=== PATIENT | female | born 1985 | race Asian ===

== ENCOUNTER 2024-01-24 04:14 | Emergency (ER) | payer OTHER ==
[2024-01-24 04:21] VITALS: BP 123/93; PULSE 70; RESP 18; TEMP 98.4; BMI 26.3
[2024-01-24] MEDS ORDERED: ACETAMINOPHEN 325 MG TABLET (FP) ONE (05:06)
[2024-01-24] MEDS ORDERED: FAMOTIDINE 20 MG TABLET ONE (05:06)
[2024-01-24] MEDS ORDERED: MAG HYDROX/AL HYDROX/SIMETH 30 ML UNIT-DOSE CUP ONE (05:07)
[2024-01-24] MEDS: MAG HYDROX/AL HYDROX/SIMETH 30 ML UNIT-DOSE CUP PO ONE (05:20)
[2024-01-24] MEDS: FAMOTIDINE 20 MG TABLET PO ONE (05:20)
[2024-01-24] MEDS: ACETAMINOPHEN 325 MG TABLET (FP) PO ONE (05:20)
[2024-01-24 05:41] LABS: BASO % 0.8 % (0-2.0); EOS % 1.7 % (0-4.5); HEMATOCRIT 36.5 % (32.4-45.2); HEMOGLOBIN 12.4 GM/dL (10.7-15.3); LYMPH % 37.4 % (8-40); MCH 29.7 pg (25.7-33.7); MCHC 33.9 g/dl (32.0-36.0); MEAN CELL VOLUME 87.6 fl (80-96); MEAN PLT VOLUME 8.8 fl (7.5-11.1); NEUT % 51.1 % (42.8-82.8); PLATELET COUNT 221 10^3/uL (134-434); RBC 4.17 M/mm3 (3.60-5.2); RDW 12.8 % (11.6-15.6); WHITE BLOOD COUNT 8.9 K/mm3 (4.0-10.0)
[2024-01-24 05:47] LABS: VENOUS BASE EXCESS 1.1 mmol/L (-2-2); VENOUS PCO2 37.6 mmHg (38-52); VENOUS PH 7.441 (7.310-7.410)
[2024-01-24 06:16] LABS: POTASSIUM 3.7 mmol/L (3.5-5.1)
[2024-01-24 06:18] LABS: CALCIUM 9.1 mg/dL (8.5-10.1)
[2024-01-24 06:19] LABS: ALBUMIN 3.6 g/dl (3.4-5.0); BLOOD UREA NITROGEN 11.7 mg/dL (7-18); MAGNESIUM 1.8 mg/dL (1.8-2.4)
[2024-01-24 06:22] LABS: CREATININE 0.6 mg/dL (0.55-1.3)
[2024-01-24 06:23] LABS: BILIRUBIN,TOTAL 0.2 mg/dL (0.2-1); TOT PROT 6.9 g/dl (6.4-8.2)
== END 2024-01-24 07:01 | disposition home or self-care (01) ==
LOC: JER 04:14
DX: R07.81 Pleurodynia (principal); R06.02 Shortness of breath
CPT/HCPCS: 36415; 71046-TC-FY; 80053; 82375; 82803; 83735; 84484; 84703; 85025; 93005; 93010; 99285-25

== ENCOUNTER 2024-03-14 17:48 | Emergency (ER) | payer OTHER ==
[2024-03-14 18:01] VITALS: BP 116/68; PULSE 76; RESP 18; TEMP 98.3; BMI 26.6
[2024-03-14] MEDS ORDERED: MECLIZINE HCL 25 MG TABLET (FP) ONE (19:56)
[2024-03-14] MEDS ORDERED: ACETAMINOPHEN 500 MG TABLET (FP) ONE (19:56)
[2024-03-14] MEDS: MECLIZINE HCL 25 MG TABLET (FP) PO ONE (19:58)
[2024-03-14] MEDS: ACETAMINOPHEN 500 MG TABLET (FP) PO ONE (19:58)
[2024-03-14 20:18] LABS: THROAT:GRP A STREP NOT DETECTED (NOTDETECTED)
== END 2024-03-14 20:27 | disposition home or self-care (01) ==
LOC: JERFT 17:48 → JER 17:48 → JERFT 20:27
DX: R42 Dizziness and giddiness (principal); R51.9 Headache, unspecified; H93.19 Tinnitus, unspecified ear; Z20.822 Contact with and (suspected) exposure to COVID-19
CPT/HCPCS: 0241U-QW; 87651; 99283-25